=== PATIENT | female | born 2000 | race Two or more races ===

== ENCOUNTER 2021-06-06 11:48 | Emergency (ER) | payer MEDICAID, OTHER ==
[~2021-06-06] VITALS: Ht 162.6 cm; Wt 64.9 kg
[2021-06-06 12:14] VITALS: BP 125/88
[2021-06-06] MEDS ORDERED: IBUPROFEN 600 MG TAB PO ONE (14:00)
== END 2021-06-06 14:25 | disposition home or self-care (01) ==
LOC: ER 11:48
DX: A60.00 Herpesviral infection of urogenital system, unspecified (principal)